=== PATIENT | female | born 1960 | race Caucasian/White ===

== ENCOUNTER → 2019-10-21 | Outpatient (CLI) | payer OTHER ==
[~2019-10-21] MED LIST: ASPI-630 PO; ESOM20CA PO; LORA10TA55 PO
== END ==
LOC: LAB 12:39
PROVIDERS: ATTEND Nurse Anesthetist, Certified Registered
DX: Z20.828 Contact with and (suspected) exposure to other viral communicable diseases (principal)
CPT/HCPCS: U0003-CS

== ENCOUNTER → 2019-10-24 | Day surgery (SDC) | payer OTHER ==
[~2019-10-24] MED LIST changes: +IPRATRPIUM/ALBUTEROL 0.5/2.5MG 3 ML NEBU. NEB PRN; +IV RINGERS SOLUTION,LACTATED 1,000 ML IV SCH; +MIDAZOLAM HCL PF 2 MG/2 ML VIAL. IV ONE; +ONDANSETRON PF 4 MG/2 ML VIAL. IV PRN; +PROPOFOL 10,000 MCG/ML (20ML) VIAL IV ONE
[2019-10-24 11:02] VITALS: BP 143/78
== END | disposition home or self-care (01) ==
LOC: SURG 08:25
PROVIDERS: ATTEND Internal Medicine Gastroenterology
DX: Z12.11 Encounter for screening for malignant neoplasm of colon (principal); D12.3 Benign neoplasm of transverse colon; K21.9 Gastro-esophageal reflux disease without esophagitis; K63.89 Other specified diseases of intestine; K57.30 Diverticulosis of large intestine without perforation or abscess without bleeding; K44.9 Diaphragmatic hernia without obstruction or gangrene; K90.0 Celiac disease; D12.5 Benign neoplasm of sigmoid colon; F40.240 Claustrophobia; Z79.899 Other long term (current) drug therapy; Z90.710 Acquired absence of both cervix and uterus; Z98.890 Other specified postprocedural states; Z79.82 Long term (current) use of aspirin
CPT/HCPCS: 43239; 45380; 88305; 88312; J2704; J7120

== ENCOUNTER 2021-03-23 09:08 | Emergency (ER) | payer OTHER ==
[~2021-03-23] VITALS: Ht 165.1 cm; Wt 86.3 kg
[~2021-03-23 09:08] MED LIST changes: -IPRATRPIUM/ALBUTEROL 0.5/2.5MG 3 ML NEBU. NEB PRN; -IV RINGERS SOLUTION,LACTATED 1,000 ML IV SCH; +LORA-52 PO; -LORA10TA55 PO; -MIDAZOLAM HCL PF 2 MG/2 ML VIAL. IV ONE; -ONDANSETRON PF 4 MG/2 ML VIAL. IV PRN; -PROPOFOL 10,000 MCG/ML (20ML) VIAL IV ONE
[2021-03-23] MEDS ORDERED: IV NORMAL SALINE 50ML 50 ML ONE (09:46)
[2021-03-23] MEDS ORDERED: ceFAZolin SODIUM 1 GM VIAL ONE (09:46)
--- NOTE | 2021-03-23 09:53 | PHYS DOC ---
Past History Additional Past Medical Histor: has a hole in heart (DULCE LUNA APRN) Past Surgical History: Hysterectomy, Oophorectomy, Other Additional Past Surgical Histo: abd hernia repair (DULCE LUNA APRN) Alcohol Use: Occasionally (DULCE LUNA APRN) Adult General Chief Complaint Chief Complaint: LOWER EXT PAIN HPI HPI Patient is a 60-year-old female who presents to the emergency department co mplaining of waking up with left knee pain yesterday morning. Patient denies injury to this knee. Has been treating with [id number] Advil, last took this morning for 10 out of 10 knee pain that she describes as burning and sharp, reports the pain medication brought her knee pain down to a 0 out of 10 at rest however does have 4-5 out of 10 pain when palpating the knee. Patient does report difficulty ambulating because of her left knee pain. Patient reports recent diagnosis of COVID-19 positive on 16 March, denies other illnesses. Reports she takes an 81 mg aspirin for a history of "a hole in my heart ". Patient denies chest pains, shortness of breath, fever or chills at home, nausea, vomiting, diarrhea or abdominal discomfort. Patient denies chest or nasal congestion, denies chest palpitations. Patient denies history of cigarette smoking, IV drug use or illicit drug use, immunosuppression, does report drinking wine on occasion, has not had wine this week. (DULCE LUNA APRN) Review of Systems Review of Systems 14 body systems of review of systems have been reviewed. See HPI for pertinent positives and negative responses, otherwise all other systems are negative, nonpertinent or noncontributory. Constitutional: Negative except as outlined in HPI above. Skin: Negative except as outlined in HPI above. Eyes: Negative except as outlined in HPI above. HENT: Negative except as outlined in HPI above. Respiratory: Negative except as outlined in HPI above. Cardiovascular: Negative except as outlined in HPI above. GI: Negative except as outlined in HPI above. : Negative except as outlined in HPI above. Musculoskeletal: Negative except as outlined in HPI above. Integument: Negative except as outlined in HPI above. Neurologic: Negative except as outlined in HPI above. Endocrine: Negative except as outlined in HPI above. Lymphatic: Negative except as outlined in HPI above. Psychiatric: Negative except as outlined in HPI above. (DULCE LUNA APRN) Allergies Allergies Allergies Coded Allergies Type Severity Reaction Last Updated Verified No Known Drug Allergies 03/23/21 No (DULCE LUNA APRN) Physical Exam Physical Exam Constitutional: Well developed, well nourished, no acute distress, non-toxic appearance. 60-year-old female in no apparent distress. HENT: Normocephalic, atraumatic. Eyes: Conjunctiva normal, no discharge. Neck: Normal range of motion, no stridor. Cardiovascular: No cyanosis appreciated, distal cap refill less than 2 seconds. Lungs & Thorax: Patient is in no respiratory distress, no audible adventitious lung sounds appreciated. Abdomen: Nontender, no abnormalities noted. Skin: Warm, dry, no erythema, no rash. Except for left knee, see extremity note for focused skin examination. Back: No tenderness, no deformities. Extremities: No tenderness, no cyanosis, no clubbing, ROM intact, no edema. Except for left knee, very warm to touch when compared to right knee, there is mild erythema over patellar skin surfaces with mild swelling when compared to right knee, pain to palpation over patellar surface, no crepitus appreciated, no pain to palpation of medial/lateral and popliteal knee structures. Limited passive range of motion of knee related to pain, the skin surface is intact, no lesions or rash appreciated, distal cap refill less than 2 seconds bilateral lower extremities, 2+ dorsalis pedis pulses bilaterally, no edema of the lower extremities present. Full passive range of motion of left hip/ankle and toe joints without pain elicited. Neurologic: Alert and oriented X 3, normal motor function, normal sensory function, no focal deficits noted. Psychologic: Affect normal, judgement normal, mood normal. (DULCE LUNA APRN) Current Patient Data Vital Signs Vital Signs Date Time Temp Pulse Resp B/P (MAP) Pulse Ox O2 Delivery O2 Flow Rate FiO2 03/23/21 09:22 97.9 78 25 141/82 (101) 96 Room Air Lab Results Laboratory Tests Test 03/23/21 09:50 White Blood Count 4.4 x10^3/uL Red Blood Count 4.51 x10^6/uL Hemoglobin 13.4 g/dL Hematocrit 39.0 % Mean Corpuscular Volume 86 fL Mean Corpuscular Hemoglobin 30 pg Mean Corpuscular Hemoglobin Concent 34 g/dL Red Cell Distribution Width 13.2 % Platelet Count 191 x10^3/uL Neutrophils (%) (Auto) 66 % Lymphocytes (%) (Auto) 21 % Monocytes (%) (Auto) 7 % Eosinophils (%) (Auto) 5 % Basophils (%) (Auto) 1 % Neutrophils # (Auto) 2.9 x10^3uL Lymphocytes # (Auto) 0.9 x10^3/uL Monocytes # (Auto) 0.3 x10^3/uL Eosinophils # (Auto) 0.2 x10^3/uL Basophils # (Auto) 0.0 x10^3/uL Erythrocyte Sedimentation Rate 6 Sodium Level 142 mmol/L Potassium Level 3.9 mmol/L Chloride Level 107 mmol/L Carbon Dioxide Level 26 mmol/L Anion Gap 9 Blood Urea Nitrogen 13 mg/dL Creatinine 1.0 mg/dL Estimated GFR (Cockcroft-Gault) 56.4 BUN/Creatinine Ratio 13 Glucose Level 87 mg/dL Calcium Level 8.4 mg/dL Total Bilirubin 0.4 mg/dL Aspartate Amino Transf (AST/SGOT) 18 U/L Alanine Aminotransferase (ALT/SGPT) 26 U/L Alkaline Phosphatase 107 U/L C-Reactive Protein 11.4 mg/L Total Protein 6.5 g/dL Albumin 3.6 g/dL Albumin/Globulin Ratio 1.2 Current Medications Medications (Trade) Dose Ordered Sig/Dio Route PRN Reason Start Time Stop Time Status Last Admin Dose Admin Cefazolin Sodium 1 gm/Sodium Chloride 50 ml @ 100 mls/hr 1X ONCE IV 03/23/21 09:45 03/23/21 10:14 DC 03/23/21 10:06 Cefazolin Sodium (Ancef) 1 gm STK-MED ONCE .ROUTE 03/23/21 09:46 03/23/21 09:46 DC Sodium Chloride 50 ml @ As Directed STK-MED ONCE .ROUTE 03/23/21 09:46 03/23/21 09:46 DC (DULCE LUNA APRN) EKG EKG [] (DULCE LUNA APRN) Radiology/Procedures Radiology/Procedures STATUS: REG ER ORD. PHYSICIAN: DULCE LUNA APRN REASON: Patellar swelling and erythema, suspicious for joint effusion PROCEDURE: KNEE LEFT 4V XR KNEE _4 VIEWS WITH PATELLA_LT DATE: 03/23/2021 10:03 AM INDICATION: Patellar swelling and erythema, suspicious for joint effusion COMPARISON: None. FINDINGS: Bones: There is no evidence of acute fracture or dislocation. Joints: Mild medial compartment joint space narrowing. There is no joint effusion. Miscellaneous: None. IMPRESSION: No acute osseous abnormality. No joint effusion. Electronically signed by: Archie Bernard MD (03/23/2021 10:13 AM) [id number] (DULCE LUNA APRN) Heart Score C/O Chest Pain: No Risk Factors: Risk Factors: DM, Current or recent (<one month) smoker, HTN, HLP, family history of CAD, obesity. Risk Scores: Risk Factors: DM, Current or recent (<one month) smoker, HTN, HLP, family history of CAD, obesity. (DULCE ULNA APRN) Course & Med Decision Making Course & Med Decision Making Pertinent Labs and Imaging studies reviewed. (See chart for details) 60-year-old female, vital signs reviewed, presents to the emergency department concerning left knee pain that started yesterday morning when she woke up. Physical examination is concerning for cellulitis, however there is no obvious visual skin disruption or injury appreciated, will order CBC, CMP, ESR, CRP, blood cultures x2, will order x-ray of left knee suspicious of underlying knee joint effusion, will empirically treat with IV Ancef pending results. Patient currently denies pain unless palpated or movement of knee joint. X-ray nonconcerning for bony abnormality or joint effusion. The patient's CBC and CMP within normal limits except for CRP elevated indicating inflammatory process, will treat for cellulitis of knee with Keflex 500 mg 4 times daily x7 days. May use [id number] Tylenol or Motrin for ongoing returning disco mfort, strict follow-up with primary care for reevaluation of cellulitis infection, the borders of erythema were marked with medical skin marker to evaluate infectious process at home, discussed with patient taking note of erythema borders, take medications as prescribed till complete, patient states she will make appointment with her primary care physician for reevaluation of infection, discussed return to ER precautions or concerns, patient gave verbal understanding of and is amenable to ED discharge planning. Discussed with the patient all findings and diagnostic testing as well as the need to follow-up with their primary care provider for further evaluation and treatment or return to the ED if any new or worsening symptoms. Strict return precautions were also discussed at length, the patient voiced understanding and agreement with the discharge planning. The patient was nontoxic in appearance, in no apparent distress, and hemodynamically stable at the time of disposition. (DULCE LUNA APRN) Course & Med Decision Making I was the Attending physician on the above date of service of this patient. This patient was evaluated, examined, treated, and dispositioned from the emergency department by the mid-level practitioner. I evaluated knee and repeated certain aspects of history and physical exam with CHILD WELFARE COUNSELOR present. Slight cellulitis on anterior portion of knee without any appreciable tappable effusion or other concerning findings of a septic joint. Electronically signed, Delmy Holly DO (DELMY HOLLY DO) Joanna Disclaimer Dragon Disclaimer This electronic medical record was generated, in whole or in part, using a voice recognition dictation system. (DULCE LUNA APRN) Departure Departure: Impression: Primary Impression: Cellulitis of left knee Disposition: 01 HOME / SELF CARE / HOMELESS Condition: GOOD Referrals: ALMA SHIPLEY MD (PCP) Patient Instructions: Cellulitis Additional Instructions: You were seen today in the emergency department for pain to your left knee. An x-ray and lab work were performed, your x-ray did not show any signs of fluid within the knee or other concerning bony abnormality, your lab work did support an infectious process of the skin, as we discussed you are being treated for a cellulitis of the left knee. You were given an antibiotic, 1 g of Ancef intravenously in the emergency department, I have marked the borders of redness of your knee to help determine if the home antibiotic treatment is helping. As we discussed please make an appointment to see your primary care physician for reevaluation of your knee infection. Please return to the emergency department for worsening symptoms or other concerns. I have prescribed a medication called Keflex, this is an antibiotic you will take 4 times a day for the next 7 days. Please take as directed until complete. You may use [id number] Tylenol or Motrin for returning or ongoing knee discomfort. Thank you for visiting our Emergency Department. It was a pleasure taking care of you today in the emergency department and we appreciate you trusting us with your care. If any additional problems come up don't hesitate to return to visit us. Please follow up with your primary care provider so they can plan additional care if needed and know about the problem that you had. If symptoms worsen come back to the Emergency Department. Any concerning symptoms that start such as chest pain, luciano rtness of air, weakness or numbness on one side of the body, running high fevers or any other concerning symptoms return to the ER. EMERGENCY DEPARTMENT GENERAL DISCHARGE INSTRUCTIONS Thank you for coming to [facility] (ED) today and trusting us with you care. We trust that you had a positivie experience in our Emergency Department. If you wish to speak to the department management, you may call the director at [phone]. YOUR FOLLOW UP INSTRUCTIONS ARE FOLLOWS: 1. Do you have a private Doctor? If you do not have a private doctor, please ask for a resource list of physicians or clinics that may be able to assist you with follow up care. 2. The Emergency Physician has interpreted your x-rays. The X-Ray specialist will also review them. If there is a change in the findings, you will be notified in 48 hours when at all possible. 3. A lab test or culture has been done, your results will be reviewed and you will be notified if you need a change in treatment. ADDITIONAL INSTRUCTIONS AND INFORMATION: 1. Your care today has been supervised by a physician who is specially trained in emergency care. Many problems require more than one evaluation for a complete diagnosis and treatment. We recommend that you schedule your follow up appointment as recommended to ensure complete treatment of you illness or injury. If you are unable to obtain follow up care and continue to have a problem, or if your condition worsens, we recommend that you return to the ED. 2. We are not able to safely determine your condition over the phone nor are we able to give sound medical advice over the phone. For these safety reasons, if you call for medical advice we will ask you to come to the ED for further evaluation. 3. If you have any questions regarding these discharge instructions please call the ED at [phone]. SAFETY INFORMATION: In the interest of safety, wellness, and injury prevention; we encourage you to wear your sealbelt, if you smoke; quite smoking, and we encourage family to use a protective helmet for bicycling and other sporting events that present an increased risk for head injury. IF YOUR SYMPTOMS WORSEN OR NEW SYMPTOMS DEVELOP, OR YOU HAVE CONCERNS ABOUT YOUR CONDITION; OR IF YOUR CONDITION WORSENS WHILE YOU ARE WAITING FOR YOUR FOLLOW UP APPOINTMENT; EITHER CONTACT YOUR PRIMARY CARE DOCTOR, THE PHYSICIAN WHOSE NAME AND NUMBER YOU WERE GIVEN, OR RETURN TO THE ED IMMEDIATELY. Scripts Cephalexin (KEFLEX) 500 Mg Capsule 1 CAP PO QID for knee infection for 7 Days, #28 CAP 0 Refills Take 1 tablet by mouth 4 times a day for the next 7 days. Prov: DULCE LUNA APRN 03/23/21 DULCE LUNA APRN Mar 23, 2021 09:53 DELMY HOLLY DO Mar 24, 2021 08:00
--- NOTE | 2021-03-23 10:15 | RAD ---
XR KNEE _4 VIEWS WITH PATELLA_LT DATE: 03/23/2021 10:03 AM INDICATION: Patellar swelling and erythema, suspicious for joint effusion COMPARISON: None. FINDINGS: Bones: There is no evidence of acute fracture or dislocation. Joints: Mild medial compartment joint space narrowing. There is no joint effusion. Miscellaneous: None. IMPRESSION: No acute osseous abnormality. No joint effusion. Electronically signed by: Archie Bernard MD (03/23/2021 10:13 AM) [id number]
[2021-03-23 10:35] LABS: BASO % 1 % (0-3); EOS # 0.2 x10^3/uL (0.0-0.7); EOS % 5 % (0-3); HEMOGLOBIN 13.4 g/dL (12.0-15.5); LYMPH # 0.9 x10^3/uL (1.0-4.8); LYMPH % 21 % (24-48); MEAN CORPUSCULAR HEMOGLOBIN 30 pg (25-35); MEAN CORPUSCULAR HGB CONC 34 g/dL (31-37); MEAN CORPUSCULAR VOLUME 86 fL (79-100); MONO # 0.3 x10^3/uL (0.0-1.1); MONO % 7 % (0-9); NEUT # 2.9 x10^3uL (1.8-7.7); NEUT % 66 % (31-73); PLATELET COUNT 191 x10^3/uL (140-400); RED BLOOD COUNT 4.51 x10^6/uL (3.50-5.40); RED CELL DISTRIBUTION WIDTH 13.2 % (11.5-14.5); WHITE BLOOD COUNT 4.4 x10^3/uL (4.0-11.0)
[2021-03-23 10:47] LABS: CALCIUM 8.4 mg/dL (8.5-10.1); GFR 56.4; POTASSIUM 3.9 mmol/L (3.5-5.1)
[2021-03-23 10:53] LABS: ALBUMIN 3.6 g/dL (3.4-5.0); ALBUMIN/GLOBULIN RATIO 1.2 (1.0-1.7); C REACTIVE PROTEIN 11.4 mg/L (0-3.3); TOTAL BILIRUBIN 0.4 mg/dL (0.2-1.0); TOTAL PROTEIN 6.5 g/dL (6.4-8.2)
[2021-03-23 11:49] LABS: SEDIMENTATION RATE 6 (0-25)
[2021-03-23] MEDS ORDERED: CEPH500C PO (12:09)
[2021-03-23 12:26] VITALS: BP 143/75
== END 2021-03-23 12:26 | disposition home or self-care (01) ==
LOC: ER 09:08
DX: L03.116 Cellulitis of left lower limb (principal)
CPT/HCPCS: 36415; 73564; 80053; 85025; 85651; 86140; 87040; 96365; 99285; J0690